=== PATIENT | female | born 1980 | race Caucasian/White ===

== ENCOUNTER 2022-06-25 12:55 | Emergency (ER) | payer MEDICAID ==
[~2022-06-25] VITALS: Ht 162.6 cm; Wt 90.7 kg
[2022-06-25 13:19] VITALS: BP_SYST 109
--- NOTE | 2022-06-25 13:20 | NUR ---
ER DR. ADRIAN EXAMINING PT
--- NOTE | 2022-06-25 13:20 | NUR ---
Patient to ER TENT 1 to gown for evaluation. Side rails up.
--- NOTE | 2022-06-25 13:25 | NUR ---
COVID/INFLUENZA SWAB SENT TO LAB AT 13:24.
[2022-06-25] MEDS ORDERED: PSEU30TA36 PO (14:44)
[2022-06-25 15:04] VITALS: BP_SYST 109
--- NOTE | 2022-06-25 15:06 | NUR ---
Patient given written and verbal discharge instructions and verbalizes understanding. ER MD discussed with patient the results and treatment provided. Patient in stable condition. ID arm band removed. Rx of SUDAFED given. Patient educated on pain management and to follow up with PMD. Pain Scale 0/10. Opportunity for questions provided and answered. Medication side effect fact sheet provided.
== END 2022-06-25 15:04 | disposition home or self-care (01) ==
LOC: SED 12:55
DX: J40 Bronchitis, not specified as acute or chronic (principal); R05.9 Cough, unspecified; J02.9 Acute pharyngitis, unspecified; Z88.0 Allergy status to penicillin; Z79.899 Other long term (current) drug therapy; Z20.822 Contact with and (suspected) exposure to COVID-19
CPT/HCPCS: 36415; 99283